=== PATIENT | male | born 1985 | race African-American/Black ===

== ENCOUNTER 2016-08-22 09:17 | Inpatient (IN) | payer OTHER ==
[2016-08-22 09:24] VITALS: BMI 22.5
--- NOTE | 2016-08-22 12:24 | HP ---
Admission ROS [facility] - [facility] Chief Complaint: REHAB TX FOR MARIJUANA AND PCP DEPENDENCE Allergies/Adverse Reactions: Allergies Allergy/AdvReac Type Severity Reaction Status Date / Time cashew nut Allergy Severe Itching Verified 08/22/16 09:47 shellfish derived Allergy Severe Itching Verified 08/22/16 09:47 NKDA Allergy Uncoded 08/22/16 09:47 History of Present Illness: 30 Y/O AA/MALE WITH A HX OF MARIJUANA AND PCP DEPENDENCE SEEKING REHAB TX Exam Limitations: No Limitations - Ebola screening Have you traveled outside of the country in the last 21 days: No Have you been sick,other than usual withdrawal symptoms: No - Review of Systems Constitutional: Loss of Appetite, Changes in sleep, Unintentional Wgt. Loss EENT: reports: Blurred Vision (WEARS GLASSES), Dental Problems (PAINFUL TOOTH) Respiratory: reports: Shortness of Breath (HX ASTHMA), Wheezing Cardiac: reports: No Symptoms Reported GI: reports: Poor Appetite : reports: No Symptoms Reported Musculoskeletal: reports: No Symptoms Reported Integumentary: reports: No Symptoms Reported Endocrine: reports: No Symptoms Reported Hematology: reports: No Symptoms Reported Psychiatric: reports: Orientated x3, Anxious, Depressed (HX OF DEPRESSION BUT NOT CURRENTLY ON MED) Other Systems: Reviewed and Negative Patient History - Patient Medical History Hx Anemia: No Hx Asthma: Yes Hx Chronic Obstructive Pulmonary Disease (COPD): No Hx Cardiac Disorders: No Hx Hypertension: No Hx Hypercholesterolemia: No HX Cerebrovascular Accident: No Hx Seizures: No Hx Diabetes: No Hx Gastrointestinal Disorders: No Hx Liver Disease: No Hx Genitourinary Disorders: No Hx Sexually Transmitted Disorders: No Hx Renal Disease (ESRD): No Hx Thyroid Disease: No Hx Human Immunodeficiency Virus (HIV): No (NEGATIVE HX) Hx Hepatitis C: No Hx Depression: Yes (NOT CURRENTLY ON MED) Hx Suicide Attempt: No (DENIES) Hx Bipolar Disorder: No Hx Schizophrenia: No - Patient Surgical History Past Surgical History: No Hx Neurologic Surgery: No Hx Cataract Extraction: No Hx Cardiac Surgery: No Hx Lung Surgery: No Hx Breast Surgery: No Hx Breast Biopsy: No Hx Abdominal Surgery: No Hx Appendectomy: No Hx Cholecystectomy: No Hx Genitourinary Surgery: No Hx Orthopedic Surgery: No Anesthesia Reaction: No - PPD History Previous Implant?: Yes Implanted On Prior R Admission?: No PPD to be Administered?: Yes - Reproductive History Patient is a Female of Child Bearing Age (11 -55 yrs old): No (MALE) - Smoking Cessation Smoking history: Current every day smoker Have you smoked in the past 12 months: Yes Aproximately how many cigarettes per day: 10 Hx Chewing Tobacco Use: No Initiated information on smoking cessation: Yes 'Breaking Loose' booklet given: 08/22/16 - Substance & Tx. History Hx Alcohol Use: (SOCIALLY) Hx Substance Use: Yes Substance Use Type: Marijuana (MARIJUANA/PCP) Hx Substance Use Treatment: Yes ([facility]) - Substances Abused Marijuana/Hashish Route: Smoking Frequency: Daily Amount used: 6 BAGS Age of first use: 16 Date of Last Use: 08/08/16 PCP Route: Smoking Frequency: 3-6 times per week (2-3X/WEEK) Amount used: 2-3 BAGS Age of first use: 18 Date of Last Use: 08/15/16 Family Disease History - Family Disease History Family Disease History: Respiratory: Father (ASTHMA) Admission Physical Exam [facility] - Vital Signs Vital Signs: Vital Signs - 24 hr 08/22/16 09:21 Temperature 97.0 F L Pulse Rate 78 Respiratory 18 Rate Blood Pressure 134/73 - Physical General Appearance: Yes: No Apparent Distress, Irritable, Anxious HEENTM: Yes: EOMI, Normocephalic, ARCENIO, Pharynx Normal, Other (UPPER LEFT MOLARS WITH FILLINGS.) Respiratory: Yes: Chest Non-Tender, Lungs Clear, Normal Breath Sounds, No Respiratory Distress Neck: Yes: Supple, Trachea in good position Breast: Yes: Breast Exam Deferred Cardiology: Yes: Regular Rhythm, Regular Rate, S1, S2 Abdominal: Yes: Normal Bowel Sounds, Non Tender, Soft Genitourinary: Yes: Other (N/C) Back: Yes: Within Normal Limits Extremities: Yes: Normal Range of Motion, Non-Tender Neurological: Yes: tab cutter II-XII NML intact, Fully Oriented, Alert, Motor Strength 5/5 Integumentary: Yes: Dry, Warm Lymphatic: Yes: Within Normal Limits - Diagnostic (1) Cannabis dependence, uncomplicated Current Visit: Yes Status: Chronic (2) PCP dependence Current Visit: Yes Status: Chronic (3) Asthma Current Visit: Yes Status: Chronic Qualifiers: Asthma severity: mild intermittent Asthma complication type: uncomplicated Qualified Code(s): J45.20 - Mild intermittent asthma, uncomplicated (4) History of depression Current Visit: Yes Status: Chronic Cleared for Admission [facility] - Detox or Rehab Claeared for Rehab Admission: Yes [facility] Breath Alcohol Content Breath Alcohol Content: 0 Urine Drug Screen - Results Drug Screen Negative: No Urine Drug Screen Results: PCP-Phencyclidine
[2016-08-22] MEDS ORDERED: ALBUTEROL SO4 6.7 GM HFA INHALER IH PRN (13:40)
[2016-08-22] MEDS ORDERED: P-EPHED 60MG/TRIPROLIDI 2.5MG TABLET PO PRN (13:41)
[2016-08-22] MEDS ORDERED: LOPERAMIDE HCL 2 MG CAPSULE PO PRN (13:41)
[2016-08-22] MEDS ORDERED: IBUPROFEN 400 MG TABLET (FP) PO PRN (13:41)
[2016-08-22] MEDS ORDERED: ACETAMINOPHEN 325 MG TABLET (FP) PO PRN (13:41)
[2016-08-22] MEDS ORDERED: MENTHOL/PHENOL 1 EACH UD MM PRN (13:41)
[2016-08-22] MEDS ORDERED: hydrOXYzine PAMOATE 25 MG CAPSULE (FP) PO PRN (13:41)
[2016-08-22] MEDS ORDERED: guaiFENesin/D-METHORPHAN HB 10 ML UNIT-DOSE CUPS PO PRN (13:41)
[2016-08-22] MEDS ORDERED: TUBERCULIN PPD 5 TU/0.1ML VIAL ID ONE (15:11)
[2016-08-22] MEDS: AMMONIUM LACTATE 12% LOTION 225 GM BOTTLE TP SCH (15:17)
--- NOTE | 2016-08-22 15:44 | HP ---
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 Medical History: Asthma, smoke 10 cigaretets a day Psychiatric History: Patient reports has bee feeling anxious, unable to sleep, having mood swings and his appetite is poor, states he lost 40 lbs, he was seen by at [facility] and medications recommended but he never started, now feels he needs medication due to anxiety. Physical/Sexual Abuse/Trauma History: Denies history of sexual, physical and verbal abuse Vital Signs: Vital Signs - 24 hr 08/22/16 08/22/16 09:21 15:17 Temperature 97.0 F L 98 F Pulse Rate 78 78 Respiratory 18 18 Rate Blood Pressure 134/73 106/65 Allergies/Adverse Reactions: Allergies Allergy/AdvReac Type Severity Reaction Status Date / Time cashew nut Allergy Severe Itching Verified 08/22/16 15:05 shellfish derived Allergy Severe Itching Verified 08/22/16 15:05 No Known Drug Allergies Allergy Verified 08/22/16 17:09 NKDA Allergy Uncoded 08/22/16 15:05 Date of last physical exam: 08/22/16 Concur with the findings of this exam: Yes - Substance Abuse/Tx History Hx Alcohol Use: No Hx Substance Use: Yes (PVCHepC+, Left lower extremity injury history, rught foot injury, Scoliosis) Substance Use Type: Marijuana (daily use) Hx Substance Use Treatment: Yes ( [facility]) - Admission Criteria Previous failed treatment: Yes Poor recovery environment: Yes Comorbidities: No Lacks judgement: Yes Mental Status Exam - Mental Status Exam Alert and Oriented to: Time, Place, Person Cognitive Function: Grossly Intact Patient Appearance: Well Groomed Mood: Sad, Anxious Affect: Appropriate, Mood Congruent Patient Behavior: Appropriate, Cooperative Speech Pattern: Clear, Appropriate Voice Loudness: Normal Thought Process: Intact, Goal Oriented Thought Disorder: Not Present Hallucinations: Denies Suicidal Ideation: Denies Homicidal Ideation: Denies Insight/Judgement: Fair Sleep: Fair Appetite: Fair Muscle strength/Tone: Normal Gait/Station: Normal Psychiatric Findings - Problem List ([place] 1, 2,3) (1) Cannabis dependence, uncomplicated Current Visit: Yes Status: Chronic (2) PCP dependence Current Visit: Yes Status: Chronic (3) AR (generalized anxiety disorder) Current Visit: Yes Status: Acute - Initial Treatment Plan Initial Treatment Plan: discussed indications and properties of Remeron and Neurontin with the patient he agreed to start, will add meds. monitor progress as needed.
[2016-08-22] MEDS: GABAPENTIN 100 MG CAPSULE (FP) PO SCH (21:09)
[2016-08-22] MEDS: THIAMINE HCL 100 MG TABLET (FP) PO SCH (21:09)
[2016-08-22] MEDS: MIRTAZAPINE 15 MG TABLET (FP) PO SCH (21:09)
[2016-08-23 03:20] LABS: URINE APPEARANCE CLEAR; URINE BILIRUBIN NEGATIVE (NEGATIVE); URINE BLOOD NEGATIVE (NEGATIVE); URINE COLOR YELLOW; URINE GLUCOSE (UA) NEGATIVE (NEGATIVE); URINE KETONE NEGATIVE (NEGATIVE); URINE LEUK ESTERASE NEGATIVE (NEGATIVE); URINE NITRITE NEGATIVE (NEGATIVE); URINE PROTEIN NEGATIVE (NEGATIVE); URINE UROBILINOGEN NEGATIVE E.U./dl (0.2-1.0)
[2016-08-23] MEDS: GABAPENTIN 100 MG CAPSULE (FP) PO SCH ×3 (06:20→21:02)
[2016-08-23] MEDS: PRENATAL VITAMINS W/ FOLIC ACID TABLET (FP) PO SCH (10:02)
[2016-08-23] MEDS: AMMONIUM LACTATE 12% LOTION 225 GM BOTTLE TP SCH (10:03)
[2016-08-23] MEDS: NICOTINE 14 MG/24 HOURS TOPICAL PATCH TD SCH (10:04)
[2016-08-23] MEDS: NICOTINE POLACRILEX 2 MG GUM BUC PRN ×2 (10:05→16:58)
[2016-08-23 11:05] LABS: MCH 29.3 pg (25.7-33.7); MCHC 32.5 g/dl (32.0-35.9); MEAN CELL VOLUME 90.2 fl (80-96); MEAN PLT VOLUME 8.9 fl (7.5-11.1); PLATELET COUNT 253 K/MM3 (134-434); RDW 14.7 % (11.9-15.9); WHITE BLOOD COUNT 7.2 K/mm3 (4.0-10.0)
[2016-08-23 11:23] LABS: ALBUMIN 3.7 g/dl (3.4-5.0); ALK PHOS 77 U/L (45-117); ANION GAP 15 (8-16); BILIRUBIN,TOTAL 0.2 mg/dL (0.2-1.0); CALCIUM 8.9 mg/dL (8.5-10.1); CO2 20 mmol/L (21-32); CREATININE 1.1 mg/dL (0.7-1.3); GLUCOSE,RANDOM 103 mg/dL (74-106); SGOT/AST 12 U/L (15-37); SGPT/ALT 21 U/L (12-78); TOT PROT 7.6 g/dl (6.4-8.2)
[2016-08-23 11:31] LABS: SICKLE CELL SCREEN NEGATIVE (NEGATIVE)
--- NOTE | 2016-08-23 13:35 | EKG ---
Test Reason : Blood Pressure : / mmHG Vent. Rate : 068 BPM Atrial Rate : 068 BPM P-R Int : 154 ms QRS Dur : 102 ms QT Int : 406 ms P-R-T Axes : 055 030 029 degrees QTc Int : 431 ms NORMAL SINUS RHYTHM ST ELEVATION, CONSIDER EARLY REPOLARIZATION, PERICARDITIS, OR INJURY NO PREVIOUS ECGS AVAILABLE Confirmed by KAMAR MAI MD ([id number]) on 08/23/2016 1:35:18 PM Referred By: Patrizia Sotelo Confirmed By:KAMAR MAI MD
[2016-08-23] MEDS: MIRTAZAPINE 15 MG TABLET (FP) PO SCH (21:02)
[2016-08-23] MEDS: THIAMINE HCL 100 MG TABLET (FP) PO SCH (21:02)
[2016-08-24] MEDS: GABAPENTIN 100 MG CAPSULE (FP) PO SCH ×3 (06:11→21:04)
[2016-08-24] MEDS: NICOTINE POLACRILEX 2 MG GUM BUC PRN (06:12)
[2016-08-24] MEDS: AMMONIUM LACTATE 12% LOTION 225 GM BOTTLE TP SCH (09:59)
[2016-08-24] MEDS: NICOTINE 14 MG/24 HOURS TOPICAL PATCH TD SCH (09:59)
[2016-08-24] MEDS: PRENATAL VITAMINS W/ FOLIC ACID TABLET (FP) PO SCH (09:59)
[2016-08-24] MEDS: MIRTAZAPINE 15 MG TABLET (FP) PO SCH (21:04)
[2016-08-24] MEDS: THIAMINE HCL 100 MG TABLET (FP) PO SCH (21:04)
[2016-08-25] MEDS: GABAPENTIN 100 MG CAPSULE (FP) PO SCH ×3 (06:08→21:10)
[2016-08-25] MEDS: NICOTINE POLACRILEX 2 MG GUM BUC PRN ×3 (06:08→19:29)
[2016-08-25] MEDS: AMMONIUM LACTATE 12% LOTION 225 GM BOTTLE TP SCH (10:03)
[2016-08-25] MEDS: NICOTINE 14 MG/24 HOURS TOPICAL PATCH TD SCH (10:03)
[2016-08-25] MEDS: PRENATAL VITAMINS W/ FOLIC ACID TABLET (FP) PO SCH (10:03)
[2016-08-25] MEDS: THIAMINE HCL 100 MG TABLET (FP) PO SCH (21:10)
[2016-08-25] MEDS: MIRTAZAPINE 15 MG TABLET (FP) PO SCH (21:10)
[2016-08-26] MEDS: GABAPENTIN 100 MG CAPSULE (FP) PO SCH ×3 (06:24→21:01)
[2016-08-26] MEDS: AMMONIUM LACTATE 12% LOTION 225 GM BOTTLE TP SCH (10:27)
[2016-08-26] MEDS: PRENATAL VITAMINS W/ FOLIC ACID TABLET (FP) PO SCH (10:27)
[2016-08-26] MEDS: NICOTINE 14 MG/24 HOURS TOPICAL PATCH TD SCH (10:28)
--- NOTE | 2016-08-26 16:00 | PN ---
Psychiatric Progress Note Vital Signs: Vital Signs Period Temp Pulse Resp BP Sys/Crowe Pulse Ox Last 24 Hr 98.1 F 67 16-16 118/74 Date of Session: 08/26/16 Chief Complaint:: insomnia HPI: Asthma ROS: Patient is addressing PCP and cannabis dependence. Current Medications: Active Medications Generic Name Dose Route Start Last Admin Trade Name Freq PRN Reason Stop Dose Admin Acetaminophen 650 mg 08/22/16 13:41 Tylenol - PO Q4H PRN PAIN Al Hydroxide/Mg Hydroxide 30 ml 08/22/16 13:41 Mylanta Oral Suspension - PO Q6H PRN DYSPEPSIA Albuterol Sulfate 2 puff 08/22/16 13:40 Ventolin Hfa Inhaler - IH Q4H PRN ASTHMA Diphenhydramine HCl 50 mg 08/22/16 13:41 Benadryl - PO HSMR1 PRN INSOMNIA Eucalyptus/Menthol/Phenol/Sorbitol 1 each 08/22/16 13:41 Cepastat Lozenge - MM Q4H PRN SORE THROAT Gabapentin 100 mg 08/22/16 22:00 08/26/16 13:54 Neurontin - PO 100 mg TID TAMIA Administration Guaifenesin 10 ml 08/22/16 13:41 Robitussin Dm - PO Q6H PRN COUGH Hydroxyzine Pamoate 25 mg 08/22/16 13:41 Vistaril - PO Q4H PRN AGITATION Ibuprofen 400 mg 08/22/16 13:41 Motrin - PO Q6H PRN SEVERE PAIN Lactic Acid 1 applic 08/22/16 13:45 08/26/16 10:27 Lac-Hydrin 12 TP 1 applic DAILY TAMIA Administration Loperamide HCl 4 mg 08/22/16 13:41 Imodium - PO Q6H PRN DIARRHEA Magnesium Citrate 300 ml 08/22/16 13:41 Citroma - PO Q48H PRN CONSTIPATION Magnesium Hydroxide 30 ml 08/22/16 13:41 Milk Of Magnesia - PO DAILY PRN CONSTIPATION Nicotine 14 mg 08/23/16 10:00 08/26/16 10:28 Nicoderm Patch - TD Not Given DAILY TAMIA Nicotine Polacrilex 2 mg 08/22/16 13:41 08/25/16 19:29 Nicorette Gum - BUC 2 mg Q2H PRN Administration NICOTINE REPLACEMENT RX Multivit/Folic Acid/Iron 1 tab 08/23/16 10:00 08/26/16 10:27 Vitamins (Sjr) - PO 1 tab DAILY TAMIA Administration Pseudoephedrine/Triprolidine 1 combo 08/22/16 13:41 Actifed - PO TID PRN NASAL CONGESTION Quetiapine Fumarate 25 mg 08/26/16 22:00 Seroquel - PO HS TAMIA Thiamine HCl 100 mg 08/22/16 22:00 08/25/16 21:10 Vitamin B1 - PO 100 mg HS TAMIA Administration Current Side Effect: No Lab tests ordered: No Lab tests reviewed: Yes Provider note:: Patient reports he is unable to sleep, while in his previous rehabilitation treatment was prescribed Seroquel with good effect. Will add 25 mg po hs, continue to monitor. Total face to face time:: 10 Mental Status Exam - Mental Status Exam Alert and Oriented to: Time, Place, Person Cognitive Function: Good Patient Appearance: Well Groomed Mood: Sad Affect: Appropriate, Mood Congruent Patient Behavior: Appropriate, Cooperative Speech Pattern: Clear, Appropriate Voice Loudness: Normal Thought Process: Intact, Goal Oriented Thought Disorder: Not Present Hallucinations: Denies Suicidal Ideation: Denies Homicidal Ideation: Denies Insight/Judgement: Fair Sleep: Poorly, Difficulty falling asleep Appetite: Fair Muscle strength/Tone: Normal Gait/Station: Normal Psychiatric Treatment Plan - Problem List (1) Cannabis dependence, uncomplicated Current Visit: Yes (2) PCP dependence Current Visit: Yes (3) AR (generalized anxiety disorder) Current Visit: Yes
[2016-08-26] MEDS: THIAMINE HCL 100 MG TABLET (FP) PO SCH (21:01)
[2016-08-26] MEDS: QUEtiapine FUMARATE 25 MG TABLET (FP) PO SCH (21:01)
[2016-08-27] MEDS: GABAPENTIN 100 MG CAPSULE (FP) PO SCH ×3 (06:21→21:12)
[2016-08-27 07:04] VITALS: PULSE 73
[2016-08-27] MEDS: NICOTINE 14 MG/24 HOURS TOPICAL PATCH TD SCH (10:01)
[2016-08-27] MEDS: PRENATAL VITAMINS W/ FOLIC ACID TABLET (FP) PO SCH (10:01)
[2016-08-27] MEDS: AMMONIUM LACTATE 12% LOTION 225 GM BOTTLE TP SCH (10:02)
[2016-08-27] MEDS: NICOTINE POLACRILEX 2 MG GUM BUC PRN (18:04)
[2016-08-27] MEDS: QUEtiapine FUMARATE 25 MG TABLET (FP) PO SCH (21:12)
[2016-08-27] MEDS: diphenhydrAMINE HCL 50 MG CAPSULE PO PRN (21:12)
[2016-08-27] MEDS: THIAMINE HCL 100 MG TABLET (FP) PO SCH (21:12)
[2016-08-28] MEDS: GABAPENTIN 100 MG CAPSULE (FP) PO SCH ×3 (06:18→21:10)
[2016-08-28] MEDS: PRENATAL VITAMINS W/ FOLIC ACID TABLET (FP) PO SCH (09:57)
[2016-08-28] MEDS: NICOTINE POLACRILEX 2 MG GUM BUC PRN (09:58)
[2016-08-28] MEDS: AMMONIUM LACTATE 12% LOTION 225 GM BOTTLE TP SCH (09:58)
[2016-08-28] MEDS: NICOTINE 14 MG/24 HOURS TOPICAL PATCH TD SCH (09:58)
--- NOTE | 2016-08-28 15:00 | PN ---
S Progress Note Note: patient c/o anxiety restless and unable to focus, Vistaril 50 mg po q4 hrs added , will continue to monitor progress.
[2016-08-28] MEDS: hydrOXYzine PAMOATE 50 MG CAPSULE (FP) PO PRN ×2 (15:17→20:30)
[2016-08-28] MEDS: THIAMINE HCL 100 MG TABLET (FP) PO SCH (21:10)
[2016-08-28] MEDS: QUEtiapine FUMARATE 25 MG TABLET (FP) PO SCH (21:10)
[2016-08-28] MEDS: diphenhydrAMINE HCL 50 MG CAPSULE PO PRN (21:11)
[2016-08-29] MEDS: GABAPENTIN 100 MG CAPSULE (FP) PO SCH (05:47)
[2016-08-29 06:51] VITALS: BP 135/85; TEMP 97.1
[2016-08-29] MEDS: NICOTINE 14 MG/24 HOURS TOPICAL PATCH TD SCH (10:00)
[2016-08-29] MEDS: PRENATAL VITAMINS W/ FOLIC ACID TABLET (FP) PO SCH (10:00)
--- NOTE | 2016-08-29 10:00 | PN ---
Psychiatric Progress Note Vital Signs: Vital Signs Period Temp Pulse Resp BP Sys/Crowe Pulse Ox Last 24 Hr 97.1 F 73 18-18 135/85 Date of Session: 08/29/16 Chief Complaint:: discharge visit HPI: Patient is addressing PCP and cannabis dependence, substance induced mood and sleep disorder. Current Medications: Active Medications Generic Name Dose Route Start Last Admin Trade Name Freq PRN Reason Stop Dose Admin Acetaminophen 650 mg 08/22/16 13:41 Tylenol - PO Q4H PRN PAIN Al Hydroxide/Mg Hydroxide 30 ml 08/22/16 13:41 08/27/16 08:28 Mylanta Oral Suspension - PO 30 ml Q6H PRN Administration DYSPEPSIA Albuterol Sulfate 2 puff 08/22/16 13:40 Ventolin Hfa Inhaler - IH Q4H PRN ASTHMA Diphenhydramine HCl 50 mg 08/22/16 13:41 08/28/16 21:11 Benadryl - PO 50 mg HSMR1 PRN Administration INSOMNIA Eucalyptus/Menthol/Phenol/Sorbitol 1 each 08/22/16 13:41 Cepastat Lozenge - MM Q4H PRN SORE THROAT Gabapentin 100 mg 08/22/16 22:00 08/29/16 05:47 Neurontin - PO 100 mg TID TAMIA Administration Guaifenesin 10 ml 08/22/16 13:41 Robitussin Dm - PO Q6H PRN COUGH Hydroxyzine Pamoate 50 mg 08/28/16 14:58 08/28/16 20:30 Vistaril - PO 50 mg Q4H PRN Administration ANXIETY Ibuprofen 400 mg 08/22/16 13:41 Motrin - PO Q6H PRN SEVERE PAIN Lactic Acid 1 applic 08/22/16 13:45 08/28/16 09:58 Lac-Hydrin 12 TP Not Given DAILY TAMIA Loperamide HCl 4 mg 08/22/16 13:41 Imodium - PO Q6H PRN DIARRHEA Magnesium Citrate 300 ml 08/22/16 13:41 Citroma - PO Q48H PRN CONSTIPATION Magnesium Hydroxide 30 ml 08/22/16 13:41 Milk Of Magnesia - PO DAILY PRN CONSTIPATION Nicotine 14 mg 08/23/16 10:00 08/28/16 09:58 Nicoderm Patch - TD Not Given DAILY [facility] Nicotine Polacrilex 2 mg 08/22/16 13:41 08/28/16 09:58 Nicorette Gum - BUC 2 mg Q2H PRN Administration NICOTINE REPLACEMENT RX Multivit/Folic Acid/Iron 1 tab 08/23/16 10:00 08/28/16 09:57 Vitamins (Sjr) - PO 1 tab DAILY TAMIA Administration Pseudoephedrine/Triprolidine 1 combo 08/22/16 13:41 Actifed - PO TID PRN NASAL CONGESTION Quetiapine Fumarate 25 mg 08/26/16 22:00 08/28/16 21:10 Seroquel - PO 25 mg HS TAMIA Administration Thiamine HCl 100 mg 08/22/16 22:00 08/28/16 21:10 Vitamin B1 - PO 100 mg HS TAMIA Administration Current Side Effect: No Lab tests ordered: No Lab tests reviewed: Yes Provider note:: Patient has completed today a modified treatment program and will continue his treatment at [facility]. Patient gained insights into his problem and verbailized sobriety is very important to him at this time and he is willing to put the work into being successful with his sobriety. Patient reports that Seroquel and Vistaril effective in sleep improvement and mood stabilization. Scripts provided. Patient is stable for discharge. Total face to face time:: 35 Mental Status Exam - Mental Status Exam Alert and Oriented to: Time, Place, Person Cognitive Function: Good Patient Appearance: Well Groomed Mood: Hopeful Affect: Appropriate, Mood Congruent Patient Behavior: Appropriate, Cooperative Speech Pattern: Clear, Appropriate Voice Loudness: Normal Thought Process: Intact, Goal Oriented Thought Disorder: Not Present Hallucinations: Denies Suicidal Ideation: Denies Homicidal Ideation: Denies Insight/Judgement: Fair Sleep: Fair Appetite: Fair Muscle strength/Tone: Normal Gait/Station: Normal Psychiatric Treatment Plan - Problem List (1) Cannabis dependence, uncomplicated Current Visit: Yes (2) PCP dependence Current Visit: Yes (3) AR (generalized anxiety disorder) Current Visit: Yes (4) Substance-induced sleep disorder Current Visit: Yes (5) Substance induced mood disorder Current Visit: Yes
[2016-08-29] MEDS: AMMONIUM LACTATE 12% LOTION 225 GM BOTTLE TP SCH (10:01)
== END 2016-08-29 10:00 | disposition home or self-care (01) | DRG 772 ==
LOC: YASAS 09:17 → Y5N 11:48
PROVIDERS: ADMIT Psychiatry & Neurology Psychiatry; ATTEND Psychiatry & Neurology Psychiatry
PROC: HZ42ZZZ Group Counseling for Substance Abuse Treatment, Cognitive-Behavioral (ICD-10-PCS; principal; 2016-08-29)
DX: F12.20 Cannabis dependence, uncomplicated (principal); F16.20 Hallucinogen dependence, uncomplicated; F41.1 Generalized anxiety disorder; F32.9 Major depressive disorder, single episode, unspecified; F19.282 Other psychoactive substance dependence with psychoactive substance-induced sleep disorder; F19.24 Other psychoactive substance dependence with psychoactive substance-induced mood disorder; J45.20 Mild intermittent asthma, uncomplicated
CPT/HCPCS: 36415; 80053; 81003; 85027; 85660; 86593; 93005; 93010